=== PATIENT | female | born 1950 ===

== ENCOUNTER 2021-10-04 10:50 | Emergency (ER) | payer MEDICARE, MEDICAID ==
[2021-10-04 11:00] VITALS: BP 158/76; PULSE 90
[2021-10-04] MEDS ORDERED: Benzonatate 100 MG Cap ONE (12:00)
== END 2021-10-04 12:12 | disposition home or self-care (01) ==
LOC: LB.ED 10:50
DX: R05.9 Cough, unspecified (principal); E78.00 Pure hypercholesterolemia, unspecified; I10 Essential (primary) hypertension; E11.9 Type 2 diabetes mellitus without complications; Z90.49 Acquired absence of other specified parts of digestive tract; Z90.710 Acquired absence of both cervix and uterus; Z79.899 Other long term (current) drug therapy; Z79.82 Long term (current) use of aspirin; Z79.84 Long term (current) use of oral hypoglycemic drugs; Z88.1 Allergy status to other antibiotic agents; Z20.822 Contact with and (suspected) exposure to COVID-19
CPT/HCPCS: 36415; 71046; 84484; 85025; 93005; 93010; 99281; 99284-25; A9270-GY; U0002

== ENCOUNTER 2022-08-12 15:47 | Emergency (ER) | payer MEDICARE, MEDICAID ==
[2022-08-12] MEDS ORDERED: Lidocaine 2% Viscous Solution 15 ML UD PO ONE (16:16)
[2022-08-12] MEDS ORDERED: Aluminum Hydroxide/Magnesium Hydroxide/Simethicone Susp 30 ML Cup PO PRN (16:17)
[2022-08-12 18:05] VITALS: BP 135/70; PULSE 71
== END 2022-08-12 17:51 | disposition home or self-care (01) ==
LOC: LB.ED 15:47
DX: T65.891A Toxic effect of other specified substances, accidental (unintentional), initial encounter (principal); E78.00 Pure hypercholesterolemia, unspecified; I10 Essential (primary) hypertension; M19.90 Unspecified osteoarthritis, unspecified site; E11.9 Type 2 diabetes mellitus without complications; Z88.1 Allergy status to other antibiotic agents; Z91.041 Radiographic dye allergy status; Z79.82 Long term (current) use of aspirin; Z79.899 Other long term (current) drug therapy; Z79.84 Long term (current) use of oral hypoglycemic drugs
CPT/HCPCS: 99283